=== PATIENT | female | born 1945 | race African-American/Black ===

== ENCOUNTER 2019-02-05 10:22 | Emergency (ER) | payer MEDICARE, MEDICAID ==
[~2019-02-05] VITALS: Ht 167.6 cm; Wt 57.0 kg
[~2019-02-05 10:22] MED LIST: ALDACTONE; ASA; ASA5EC PO; ASPI-1073 PO; CELEBREX; COR3 PO; COR6 PO; CORREG; DIGO125T82 PO; FLOR PO; FOSAMAX; FURO-151 PO; LEVO500T2 PO; LISI-186 PO; LOSA50TA3 PO; LOSARTAN; MAGN400T27 PO; POTA-9 PO; PREDNISONE; TOFRANIL; TRAMADOL; [UNRECOGNIZED DRUG - OTHER]
[2019-02-05 11:38] LABS: HEMATOCRIT. 24.8 % (36.0-48.0); HEMOGLOBIN. 7.9 g/dL (12.0-16.0); MEAN CORPUSCULAR HEMOGLOBIN 24.8 pg (28.0-32.0); MEAN CORPUSCULAR VOLUME 77.5 fL (81.0-99.0); MEAN PLATELET VOLUME 9.2 fl (7.4-10.4); PLATELET 153 x1000/uL (130-400); RED CELL DISTRIBUTION WIDTH 19.8 % (11.6-14.6)
[2019-02-05 11:42] LABS: CHLORIDE 116 mEq/L (98-107)
[2019-02-05 11:44] LABS: INR 1.1; PARTIAL THROMBOPLASTIN TIME 23.8 sec (23.4-31.0); PROTHROMBIN TIME 11.1 sec (9.1-11.1)
[2019-02-05 12:18] LABS: NUCLEATED RED BLOOD CELLS 1 /100 WBC; PLATELET ESTIMATE NORMAL
[2019-02-05 14:30] VITALS: BP 122/62
== END 2019-02-05 14:34 | disposition home or self-care (01) ==
LOC: ER 10:22 → CANBEDREQ 14:42
DX: D64.9 Anemia, unspecified (principal); I12.9 Hypertensive chronic kidney disease with stage 1 through stage 4 chronic kidney disease, or unspecified chronic kidney disease; N18.9 Chronic kidney disease, unspecified; M19.90 Unspecified osteoarthritis, unspecified site; Z90.710 Acquired absence of both cervix and uterus; Z79.82 Long term (current) use of aspirin; Z79.899 Other long term (current) drug therapy; B37.2 Candidiasis of skin and nail
CPT/HCPCS: 36415; 71045; 83880; 84484; 86850; 86900; 86920; 93005; 99284

== ENCOUNTER → 2019-02-10 | Outpatient (CLI) | payer MEDICARE, MEDICAID ==
[~2019-02-10] MED LIST changes: +BARIUM SULFATE 450ML ORAL SUSP ONE
== END | disposition home or self-care (01) ==
LOC: CT 07:58
PROVIDERS: ATTEND Internal Medicine Nephrology
DX: K80.20 Calculus of gallbladder without cholecystitis without obstruction (principal); Z90.710 Acquired absence of both cervix and uterus
CPT/HCPCS: 71250; 74176

== ENCOUNTER 2019-08-27 13:19 | Inpatient (IN) | payer MEDICARE, MEDICAID ==
[~2019-08-27] VITALS: Ht 165.1 cm; Wt 60.8 kg
[~2019-08-27 13:19] MED LIST changes: -ASA5EC PO; +ASPI325T85 PO; -BARIUM SULFATE 450ML ORAL SUSP ONE
[2019-08-27 17:46] LABS: HEMATOCRIT. 29.1 % (36.0-48.0); HEMOGLOBIN. 9.3 g/dL (12.0-16.0); MEAN CORPUSCULAR HEMOGLOBIN 25.2 pg (28.0-32.0); MEAN CORPUSCULAR VOLUME 79.1 fL (81.0-99.0); MEAN PLATELET VOLUME 9.8 fl (7.4-10.4); PLATELET 200 x1000/uL (130-400); RED BLOOD CELL COUNT 3.68 mill/uL (4.2-5.4); RED CELL DISTRIBUTION WIDTH 18.2 % (11.6-14.6)
[2019-08-27 17:51] LABS: CHLORIDE 99 mEq/L (98-107); INR 1.2; PROTHROMBIN TIME 12.2 sec (9.6-11.0)
[2019-08-27 18:03] LABS: PLATELET ESTIMATE NORMAL
[2019-08-27 21:00] VITALS: BP 124/82
[2019-08-27] MEDS ORDERED: ONDANSETRON HCL 4MG/2ML INJ IV PRN (21:15)
[2019-08-27] MEDS ORDERED: CLONIDINE 0.1MG TABLET PO PRN (21:15)
[2019-08-27] MEDS ORDERED: ACETAMINOPHEN 325MG TABLET PO PRN (21:15)
[2019-08-27] MEDS ORDERED: MAGNESIUM/ALUMINUM HYDROXIDE/SIMETHICONE 30ML UDC PO PRN (21:15)
[2019-08-27] MEDS ORDERED: DIPHENHYDRAMINE 50MG/ML VIAL IV PRN (21:15)
[2019-08-27 21:52] LABS: PHOSPHORUS 5.8 mg/dL (2.5-4.9)
[2019-08-27] MEDS ORDERED: PRED5SOL2 PO (22:56)
[2019-08-27] MEDS ORDERED: MULT-1146 PO (22:56)
[2019-08-27] MEDS ORDERED: HYDR200T35 PO (22:56)
[2019-08-27] MEDS ORDERED: LEFL10TA15 PO (22:56)
[2019-08-27] MEDS ORDERED: ALD2525 PO (22:59)
[2019-08-27] MEDS ORDERED: PANT40TA4 PO (22:59)
[2019-08-27] MEDS ORDERED: FURO20TA4 PO (22:59)
[2019-08-27] MEDS ORDERED: OMEP20CA5 PO (23:00)
[2019-08-27] MEDS ORDERED: POTASSIUM CHLORIDE 20MEQ/PACKET PO NR (23:00)
[2019-08-27] MEDS: DEXT 5%/0.45% NACL 1000ML 1,000 ML IV SCH (23:10)
[2019-08-27] MEDS ORDERED: B25 PO (23:37)
[2019-08-27] MEDS ORDERED: OMEP20TA2 PO (23:37)
[2019-08-28] VITALS (7 sets, daily range): BP systolic 111–130; BP diastolic 46–67
[2019-08-28] MEDS ORDERED: MAGNESIUM 4 G PREMIX 100 ML IV NR
[2019-08-28 00:04] LABS: CREATINE KINASE MB FRACTION 18.2 ng/mL (0.5-3.6)
[2019-08-28] MEDS: HYDROCODONE/ACETAMINOPHEN 10/325MG TABLET PO PRN ×4 (00:28→20:47)
[2019-08-28] MEDS: HYDROXYCHLOROQUINE SULFATE 200MG TABLET PO SCH ×3 (00:28→18:41)
[2019-08-28 07:49] LABS: BASOPHILS % 0.1 % (0.0-2.0); EOSINOPHILS % 0.1 % (0.0-5.0); HEMATOCRIT. 27.6 % (36.0-48.0); HEMOGLOBIN. 9.1 g/dL (12.0-16.0); LYMPHOCYTES % 8.5 % (20.0-50.0); MEAN CORPUSCULAR HEMOGLOBIN 25.7 pg (28.0-32.0); MEAN CORPUSCULAR VOLUME 77.8 fL (81.0-99.0); MEAN PLATELET VOLUME 10.2 fl (7.4-10.4); MONOCYTES % 10.4 % (2.0-8.0); NEUTROPHILS % 80.9 % (40.0-76.0); PLATELET 203 x1000/uL (130-400); RED BLOOD CELL COUNT 3.55 mill/uL (4.2-5.4); RED CELL DISTRIBUTION WIDTH 17.9 % (11.6-14.6)
[2019-08-28] MEDS ORDERED: PNEUMOCOCCAL 23-VAL P-SAC VAC 0.5 ML IM ONE (08:00)
[2019-08-28 08:23] LABS: CREATINE KINASE MB FRACTION 18.1 ng/mL (0.5-3.6)
[2019-08-28] MEDS ORDERED: HYDROXYCHLOROQUINE SULFATE 200MG TABLET PO SCH (09:00)
[2019-08-28] MEDS: ENOXAPARIN 30MG/0.3ML SYR SUBCUT SCH (09:55)
[2019-08-28] MEDS ORDERED: INFLUENZA VIRUS VACCINE(AFLURIA) 0.5ML SYR IM ONE (10:00)
[2019-08-28] MEDS: CARVEDILOL 6.25 MG TABLET PO SCH ×3 (10:15→20:47)
[2019-08-28] MEDS ORDERED: MORPHINE SULFATE 4 MG/ML CPJ (NOT FOR IM USE) IV PRN (13:00)
[2019-08-28] MEDS: PANTOPRAZOLE 40MG DR TABLET PO SCH (14:01)
[2019-08-28] MEDS: CITRIC ACID/SODIUM CITRATE SOLN 15ML UDC PO SCH ×2 (14:01→18:41)
[2019-08-28] MEDS: DEXT 5%/0.45% NACL 1000ML 1,000 ML IV SCH (18:42)
[2019-08-29] VITALS: BP 109/56
[2019-08-29 04:00] VITALS: BP 94/57
[2019-08-29] MEDS: HYDROCODONE/ACETAMINOPHEN 10/325MG TABLET PO PRN ×2 (06:07→12:49)
[2019-08-29] MEDS: PANTOPRAZOLE 40MG DR TABLET PO SCH (06:07)
[2019-08-29 07:08] LABS: HEMATOCRIT. 25.8 % (36.0-48.0); HEMOGLOBIN. 8.5 g/dL (12.0-16.0); MEAN CORPUSCULAR HEMOGLOBIN 25.7 pg (28.0-32.0); PLATELET 184 x1000/uL (130-400); RED BLOOD CELL COUNT 3.31 mill/uL (4.2-5.4); RED CELL DISTRIBUTION WIDTH 17.6 % (11.6-14.6)
[2019-08-29 07:26] LABS: PHOSPHORUS 3.8 mg/dL (2.5-4.9)
[2019-08-29 08:00] VITALS: BP 100/53
[2019-08-29] MEDS: CARVEDILOL 6.25 MG TABLET PO SCH ×2 (09:00→21:46)
[2019-08-29] MEDS: CITRIC ACID/SODIUM CITRATE SOLN 15ML UDC PO SCH ×3 (09:09→19:11)
[2019-08-29] MEDS: HYDROXYCHLOROQUINE SULFATE 200MG TABLET PO SCH ×2 (09:10→18:17)
[2019-08-29] MEDS: ENOXAPARIN 30MG/0.3ML SYR SUBCUT SCH (09:10)
[2019-08-29 11:30] LABS: PLATELET ESTIMATE NORMAL
[2019-08-29 12:00] VITALS: BP 112/56
[2019-08-29] MEDS ORDERED: POTASSIUM CHLORIDE 20MEQ TABLET SR PO SCH (12:00)
[2019-08-29] MEDS: DEXT 5%/0.45% NACL 1000ML 1,000 ML IV SCH (14:52)
[2019-08-29 16:00] VITALS: BP 109/54
[2019-08-29 16:37] LABS: TOTAL IRON BINDING CAPACITY 304 ug/dL (250-450)
[2019-08-29 20:34] VITALS: BP 116/60
[2019-08-29] MEDS ORDERED: EPOETIN ALFA 10000UNITS/ML VIAL SUBCUT SCH (21:00)
[2019-08-30] VITALS (11 sets, daily range): BP systolic 91–120; BP diastolic 37–67
[2019-08-30 01:27] LABS: FOLIC ACID (FOLATE) SERUM 7.8 ng/mL (>5.38)
[2019-08-30 06:49] LABS: HEMOGLOBIN. 7.6 g/dL (12.0-16.0); MEAN CORPUSCULAR HEMOGLOBIN 25.5 pg (28.0-32.0); MEAN CORPUSCULAR VOLUME 76.8 fL (81.0-99.0); MEAN PLATELET VOLUME 10.1 fl (7.4-10.4); PLATELET 173 x1000/uL (130-400); RED BLOOD CELL COUNT 2.99 mill/uL (4.2-5.4); RED CELL DISTRIBUTION WIDTH 17.7 % (11.6-14.6)
[2019-08-30 06:59] LABS: HEPATITIS B SURFACE ANTIGEN NEGATIVE
[2019-08-30 07:28] LABS: HEPATITIS A AB IGM NEGATIVE (NEGATIVE)
[2019-08-30] MEDS: HYDROXYCHLOROQUINE SULFATE 200MG TABLET PO SCH ×2 (08:23→18:13)
[2019-08-30] MEDS: PANTOPRAZOLE 40MG DR TABLET PO SCH (08:23)
[2019-08-30] MEDS: ENOXAPARIN 30MG/0.3ML SYR SUBCUT SCH (08:24)
[2019-08-30] MEDS: CARVEDILOL 6.25 MG TABLET PO SCH ×2 (08:25→22:25)
[2019-08-30] MEDS: HYDROCODONE/ACETAMINOPHEN 10/325MG TABLET PO PRN ×2 (09:13→22:26)
[2019-08-30] MEDS ORDERED: LACTULOSE 20G/30ML UDC PO NR (09:15)
[2019-08-30] MEDS: CITRIC ACID/SODIUM CITRATE SOLN 15ML UDC PO SCH ×3 (09:38→18:12)
[2019-08-30] MEDS: FUROSEMIDE 40MG TABLET PO SCH (09:45)
[2019-08-30 09:53] LABS: PLATELET ESTIMATE NORMAL
[2019-08-30] MEDS: DEXT 5%/0.45% NACL 1000ML 1,000 ML IV SCH (10:30)
[2019-08-30] MEDS: PREDNISONE 5MG TABLET PO SCH (22:40)
[2019-08-30 23:59] LABS: HEMATOCRIT 24.5 % (36.0-48.0); HEMOGLOBIN 8.2 g/dL (12.0-16.0); MEAN CORPUSCULAR HEMOGLOBIN 25.9 pg (28.0-32.0); MEAN CORPUSCULAR VOLUME 77.5 fL (81.0-99.0); PLATELET 157 x1000/uL (130-400); RED BLOOD CELL COUNT 3.16 mill/uL (4.2-5.4)
[2019-08-31] VITALS: BP 95/48
[2019-08-31 00:09] LABS: INR 1.2; PROTHROMBIN TIME 12.2 sec (9.6-11.0)
[2019-08-31 04:00] VITALS: BP 102/53
[2019-08-31] MEDS: DEXT 5%/0.45% NACL 1000ML 1,000 ML IV SCH (06:30)
[2019-08-31 07:50] LABS: HEMATOCRIT. 25.2 % (36.0-48.0); HEMOGLOBIN. 8.4 g/dL (12.0-16.0); MEAN CORPUSCULAR HEMOGLOBIN 26.3 pg (28.0-32.0); MEAN CORPUSCULAR VOLUME 78.4 fL (81.0-99.0); MEAN PLATELET VOLUME 9.4 fl (7.4-10.4); PLATELET 157 x1000/uL (130-400); RED BLOOD CELL COUNT 3.22 mill/uL (4.2-5.4); RED CELL DISTRIBUTION WIDTH 17.2 % (11.6-14.6)
[2019-08-31 08:07] LABS: PHOSPHORUS 2.7 mg/dL (2.5-4.9)
[2019-08-31] MEDS ORDERED: POTASSIUM CHLORIDE 20MEQ TABLET SR PO SCH (08:30)
[2019-08-31] MEDS ORDERED: PREDNISOLONE 15 MG/5 ML ORAL SYRINGE PO SCH (09:00)
[2019-08-31] MEDS: CITRIC ACID/SODIUM CITRATE SOLN 15ML UDC PO SCH ×2 (09:12→14:54)
[2019-08-31] MEDS: PREDNISONE 5MG TABLET PO SCH (09:13)
[2019-08-31] MEDS: CARVEDILOL 6.25 MG TABLET PO SCH (09:13)
[2019-08-31] MEDS: HYDROCODONE/ACETAMINOPHEN 10/325MG TABLET PO PRN (09:13)
[2019-08-31] MEDS: PANTOPRAZOLE 40MG DR TABLET PO SCH (09:13)
[2019-08-31] MEDS: HYDROXYCHLOROQUINE SULFATE 200MG TABLET PO SCH (09:14)
[2019-08-31] MEDS: FUROSEMIDE 40MG TABLET PO SCH (09:14)
[2019-08-31 09:22] LABS: PLATELET ESTIMATE NORMAL
[2019-08-31] MEDS ORDERED: MAGNESIUM OXIDE 400MG TABLET PO SCH (09:30)
[2019-08-31 14:12] LABS: ALBUMIN 2.8 g/dL (2.9-4.4); ALPHA-1-GLOBULIN 0.4 g/dL (0.0-0.4); ALPHA-2-GLOBULIN 0.9 g/dL (0.4-1.0); BETA GLOBULIN 0.7 g/dL (0.7-1.3); GAMMA GLOBULINS 0.7 g/dL (0.4-1.8); GLOBULIN TOTAL 2.7 g/dL (2.2-3.9); M-SPIKE Not Observed g/dL (Not Observed); TOTAL PROTEIN SERUM 5.5 g/dL (6.0-8.5)
[2019-08-31 16:21] VITALS: BP 98/56
== END 2019-08-31 17:41 | disposition home or self-care (01) | DRG 253 ==
LOC: ER 13:19 → 6WST 18:15 → EDBEDREQ 18:18 → ENRESERV 20:26
PROVIDERS: ADMIT Internal Medicine Nephrology; ATTEND Internal Medicine Nephrology
PROC: 30233N1 Transfusion of Nonautologous Red Blood Cells into Peripheral Vein, Percutaneous Approach (ICD-10-PCS; principal; 2019-08-30)
DX: K92.2 Gastrointestinal hemorrhage, unspecified (principal); N17.0 Acute kidney failure with tubular necrosis; I21.4 Non-ST elevation (NSTEMI) myocardial infarction; E46 Unspecified protein-calorie malnutrition; E11.22 Type 2 diabetes mellitus with diabetic chronic kidney disease; N18.4 Chronic kidney disease, stage 4 (severe); I42.9 Cardiomyopathy, unspecified; E87.1 Hypo-osmolality and hyponatremia; E87.2 Acidosis; I50.9 Heart failure, unspecified; D50.9 Iron deficiency anemia, unspecified; E87.6 Hypokalemia; E78.5 Hyperlipidemia, unspecified; B19.20 Unspecified viral hepatitis C without hepatic coma; M19.90 Unspecified osteoarthritis, unspecified site; R74.0 Nonspecific elevation of levels of transaminase and lactic acid dehydrogenase [LDH]; I13.0 Hypertensive heart and chronic kidney disease with heart failure and stage 1 through stage 4 chronic kidney disease, or unspecified chronic kidney disease; I25.10 Atherosclerotic heart disease of native coronary artery without angina pectoris; I50.20 Unspecified systolic (congestive) heart failure; M06.9 Rheumatoid arthritis, unspecified; Z79.899 Other long term (current) drug therapy; Z87.891 Personal history of nicotine dependence; Z90.710 Acquired absence of both cervix and uterus; Z95.810 Presence of automatic (implantable) cardiac defibrillator; Z79.82 Long term (current) use of aspirin
CPT/HCPCS: 36415; 71045; 76705; 76770; 80048; 80076; 82270; 82550; 82553; 82575; 82607; 82728; 82746; 83540; 83550; 83735; 83880; 84100; 84155; 84165; 84484; 85027; 85384; 86705; 86709; 86803; 86850; 86900; 86920; 87340; 90686; 90732; 93005; 93306; 93970; 96365; 97161; 99291; A6261; J0885; J1650; J2270; J3475; J7512; P9016